=== PATIENT | female | born 1965 | race Caucasian/White ===

== ENCOUNTER → 2017-05-11 | Outpatient (CLI) | payer OTHER ==
--- NOTE | 2017-05-17 09:13 | RSPPFT ---
DATE OF PROCEDURE: 05/11/17 COMMENTS: Spirometry shows FVC of 2.1 at 76% of predicted, FEV1 of 1.8 at 75%, FEV1/FVC ratio is normal. Flow is normal at FEF 25, FEF 50 and FEF 75. There is no response after bronchodilator treatment. Lung volumes show residual volume is normal. TLC is normal. Diffusion capacity is normal. Flow volume loop indicates a normal pattern. Room air arterial blood gases show pH of 7.39, PCO2 of 42, PO2 of 94, BiCarb of 25 and O2 Saturation at 95%. IMPRESSION: 1. Normal spirometry. 2. No response after bronchodilator treatment. 3. Normal lung volumes. 4. Normal diffusion capacity. 5. Blood gases show normal oxygenation.
== END ==
LOC: HRSP 12:02
PROVIDERS: ATTEND Specialist
DX: R06.00 Dyspnea, unspecified (principal)
CPT/HCPCS: 36600; 82805; 94060; 94726; 94729

== ENCOUNTER → 2017-05-28 | Day surgery (SDC) | payer OTHER ==
[~2017-05-28] MED LIST: LACTATED RINGER'S 1000 ML INJ 1,000 ML ONE; PROPOFOL 200 MG/20 ML AMP IV ONE
--- NOTE | 2017-05-28 10:11 | GIPROC ---
[facility] [address] [facility], [address] EGD PROCEDURE REPORT EXAM DATE: 05/28/2017 PATIENT NAME: Erika Basilio MR #: [id number] BIRTHDATE: 1965 ATTENDING: Francisco Javier Lopez MD ORDER #: [id number] REFERENCE AND INSTRUCTION LIBRARIAN: Chelita Fernandez RN STATUS: outpatient INDICATIONS: The patient is a 52 yr old female here for an EGD due to history of esophageal reflux PROCEDURE PERFORMED: EGD w/ biopsy MEDICATIONS: None and Per Anesthesia. TOPICAL ANESTHETIC: CONSENT: The patient understands the risks and benefits of the procedure and understands that these risks include, but are not limited to: sedation, allergic reaction, infection, perforation and/or bleeding. Alternative means of evaluation and treatment include, among others: physical exam, x-rays, and/or surgical intervention. The patient elects to proceed with this endoscopic procedure. medical equipment was checked for proper function. Hand hygiene and appropriate measures for infection prevention was taken. After the risks, benefits and alternatives of the procedure were thoroughly explained, Informed consent was verified, confirmed and timeout was successfully executed by the treatment team. The patient was anesthetized with topical anesthesia and the EG-[id number] ([id number]) endoscope was introduced through the mouth and advanced to the second portion of the duodenum. Retroflexed views revealed no abnormalities The gastroscope was then slowly withdrawn and removed. ESOPHAGUS: There was LA Class A esophagitis noted. A biopsy was performed using cold forceps. Sample sent for histology. STOMACH: There was moderate and erosive gastritis in the gastric antrum. A biopsy was performed using cold forceps. Sample sent for histology. DUODENUM: The duodenal mucosa appeared normal in the bulb and second portion of the duodenum. ADVERSE EVENTS: There were no complications. IMPRESSIONS: 1. There was LA Class A esophagitis noted; biopsy was performed 2. There was gastritis in the gastric antrum; biopsy was performed 3. Normal duodenal mucosa in the bulb and second portion of the duodenum 4. Retroflexed views revealed no abnormalities RECOMMENDATIONS: 1. Await biopsy results. Biopsy results will not be ready for 7-10 days. If you don't hear from us in two weeks, call our office for biopsy results. 2. Anti-reflux regimen 3. Continue PPI 4. Avoid NSAIDS PATIENT CONDITION: stable DISPOSITION: Home REPEAT EXAM: Return 1 year EGD pending biopsy results Francisco Javier Lopez MD eSigned: Francisco Javier Lopez MD 05/28/2017 10:11 AM cc: Dania Sawyer [facility] Kassie Friedman M.D. PATIENT NAME: Erika Basilio MR#: [id number]
== END | disposition home or self-care (01) ==
LOC: ESDC 08:11
PROVIDERS: ATTEND Internal Medicine Gastroenterology
DX: K21.0 Gastro-esophageal reflux disease with esophagitis (principal); K29.70 Gastritis, unspecified, without bleeding
CPT/HCPCS: 00731; 43239; 88305; 88312; J3010; J7120

== ENCOUNTER 2017-06-22 12:08 | Observation (INO) | payer OTHER ==
[2017-06-22] MEDS ORDERED: AMBI5TAB PO (13:47)
[2017-06-22] MEDS ORDERED: CYMB60CA PO (13:47)
[2017-06-22] MEDS ORDERED: ROPI.25 PO (13:47)
[2017-06-22] MEDS ORDERED: VENTAER INH (13:47)
[2017-06-22] MEDS ORDERED: OXYB5TAB8 PO (13:47)
[2017-06-22] MEDS ORDERED: LOSA50TA PO (13:47)
[2017-06-22] MEDS ORDERED: MOBI15TA PO (13:47)
[2017-06-22] MEDS ORDERED: PROT40TA PO (13:47)
[2017-06-22] MEDS ORDERED: KETOROLAC TROMETHAMINE 30 MG/ML (IVP) VIAL IV PUSH ONE (15:45)
[2017-06-22] MEDS ORDERED: ACETAMINOPHEN 500 MG CPLT PO PRN (15:45)
[2017-06-22] MEDS ORDERED: ONDANSETRON HCL 4 MG/2 ML VIAL IV PUSH PRN (15:45)
[2017-06-22] MEDS ORDERED: NITROGLYCERIN 0.4 MG SL 25 TABS/BTL SL PRN (15:45)
[2017-06-22] MEDS ORDERED: SODIUM CHLORIDE 0.9% FLUSH 10 ML FLUSH IV FLUSH PRN (15:45)
--- NOTE | 2017-06-22 15:47 | HHI.HP ---
HPI Primary Care Physician Shane Friedman MD Chief Complaint Chest pain History of Present Illness 52-year-old female with history of asthma since emergency room for further evaluation chest pain. Onset 1:30 AM. Pain woke her from sleep. Location substernal. Characterized as pressure. Radiation to mid back. Moderate severity. Hurts to take a deep breath. Duration constant. Associated symptoms initially included nausea and diaphoresis. Denied vomiting or shortness of breath. No known precipitating or relieving factors. No recent illness or fever. No recent injury or known trauma. Denies similar pain in the past. Review of Systems General: No fatigue,weakness, fever, chills, or recent illness change in appetite HEENT: No SESAY, no vision changes, no nasal congestion or drainage, no dysphasia CV: Continues to have chest pain as stated above which is made worse with deep breathing or palpation. RESP: No SOB, cough, wheeze. History of asthma GI: No nausea or vomiting, bowel changes, diarrhea, constipation, pain, distention, melena, blood in the stool. No change in appetite, no unintentional weight gain or weight loss : No dysuria, urgency, frequency EXT: No lower leg edema, no paraesthesias MS: No discomfort or change in ROM NEURO: No difficulty with balance, LOC, motor/sensory deficits PSYCH: No anxiety, depression, suicidal ideation SKIN: No rashes, no concerning lesions Past Family Social History Allergies: Coded Allergies: No Known Allergies (Unverified , 06/22/17) Past Medical History Asthma, hypertension, morbidly obese, depression, GERD Reported Medications Reported Meds & Active Scripts Active Reported Ventolin Hfa 18 GM Inh (Albuterol Sulfate) 90 Mcg/Act Aer 1 Puff INH Q4H PRN Requip (Ropinirole HCl) 0.25 Mg Tab Unknown Dose PO HS Ambien (Zolpidem Tartrate) 5 Mg Tab 5 Mg PO HS PRN Ditropan (Oxybutynin Chloride) 5 Mg Tab 5 Mg PO Q12HR Cymbalta DR (Duloxetine HCl) 60 Mg Capdr 60 Mg PO DAILY Mobic (Meloxicam) 15 Mg Tab 15 Mg PO DAILY Protonix (Pantoprazole Sodium) 40 Mg Tab 40 Mg PO DAILY Losartan (Losartan Potassium) 50 Mg Tab 50 Mg PO DAILY Family History Noncontributory for early onset cardiovascular disease Social History Known hypertension. No known diabetes or hyperlipidemia. Lifelong nonsmoker. Denies alcohol or illegal drug use. . Works as an RN Rad. Past cardiac testing None Physical Exam Physical Exam GENERAL: Alert WN, WD, NAD, pleasant, morbidly obese female HEAD: NC, AT EYES: Sclera clear, conjunctiva without injection, pupils equal and round ENT: Mucous membranes pink and moist CV: RRR, without murmur, rub, gallop, no JVD, S1-S2 no S3-S4. RESP: Clear lungs throughout bilateral, no crackles, wheeze, rhonchi, symmetrical chest rise, nonlabored, able to speak in full sentences ABD: Soft, NT, ND, no masses, positive bowel tones EXT: Pulses +24, no dependent edema MS: Normal tone 4 extremities, no obvious deformities, full range of motion NEURO: CN II through CN XII grossly intact, motor strength 5/5, gait WNL PSYCH: A+O 3, pleasant affect, appropriate speech, mood, insight and judgment SKIN: Normal turgor, normal texture, no lesions, no rashes Laboratory Laboratory completed [facility]. CBC hemoglobin 11.3, hematocrit 36.2 platelets 375 otherwise unremarkable. CMP unremarkable D-dimer 0.71 BNP 41. Troponin 0.02 Imaging Chest x-ray and CT pulmonary angiogram completed [facility]. No evidence of PE suggesting cardiomegaly with mild failure. Chest x-ray no acute cardiopulmonary disease process Course EKG Normal sinus rhythm, no ST or T-segment changes Caprini VTE Risk Assessment Caprini VTE Risk Assessment: No/Low Risk (score <= 1) Caprini Risk Assessment Model Point Value = 1 Point Value = 2 Point Value = 3 Point Value = 5 Age 41-60 Minor surgery BMI > 25 kg/m2 Swollen legs Varicose veins or History of unexplained or recurrent spontaneous Oral contraceptives or hormone replacement Sepsis (< 1 month) Serious lung disease, including pneumonia (< 1 month) Abnormal pulmonary function Acute myocardial infarction Congestive heart failure (< 1 month) History of inflammatory bowel disease Medical patient at bed rest Age 61-74 Arthroscopic surgery Major open surgery (> 45 min) Laparoscopic surgery (> 45 min) Malignancy Confined to bed (> 72 hours) Immobilizing plaster cast Central venous access Age >= 75 History of VTE Family history of VTE Factor V Leiden Prothrombin [id number] Lupus anticoagulant Anticardiolipin antibodies Elevated serum homocysteine Heparin-induced thrombocytopenia Other congenital or acquired thrombophilia Stroke (< 1 month) Elective arthroplasty Hip, pelvis, or leg fracture Acute spinal cord injury (< 1 month) Prophylaxis Regimen Total Risk Factor Score Risk Level Prophylaxis Regimen 0-1 Low Early ambulation 2 Moderate Order ONE of the following: *Sequential Compression Device (SCD) *Heparin 5000 units SQ BID 3-4 Higher Order ONE of the following medications: *Heparin 5000 units SQ TID *Enoxaparin/Lovenox 40 mg SQ daily (WT < 150 kg, CrCl > 30 mL/min) *Enoxaparin/Lovenox 30 mg SQ daily (WT < 150 kg, CrCl > 10-29 mL/min) *Enoxaparin/Lovenox 30 mg SQ BID (WT < 150 kg, CrCl > 30 mL/min) AND/OR *Sequential Compression Device (SCD) 5 or more Highest Order ONE of the following medications: *Heparin 5000 units SQ TID (Preferred with Epidurals) *Enoxaparin/Lovenox 40 mg SQ daily (WT < 150 kg, CrCl > 30 mL/min) *Enoxaparin/Lovenox 30 mg SQ daily (WT < 150 kg, CrCl > 10-29 mL/min) *Enoxaparin/Lovenox 30 mg SQ BID (WT < 150 kg, CrCl > 30 mL/min) AND *Sequential Compression Device (SCD) Assessment and Plan Assessment and Plan Atypical chest pain -admitted to chest pain center. Has been seen and evaluated by Dr. Jose Wilkinson. Continue cardiac protocol including 3 sets of EKGs and cardiac enzymes. Monitor in telemetry overnight. Chest discomfort suggestive of Costochondral pain due to easily reproducible chest pain with palpation, movement, and taken a deep breath. Additional dose of Toradol 30mg IV x1 dose now. After being ruled out plan to complete chemical stress test in the a.m. If unremarkable, plan for discharge home to follow-up with PCP. Ruthann Woodard Jun 22, 2017 15:46
[2017-06-22 16:02] VITALS: BP 112/58; PULSE 91; RESP 20; TEMP 97.5
[2017-06-22 17:11] VITALS: PULSE 95
[2017-06-22 17:40] LABS: TROPONIN I LESS THAN 0.02 NG/ML (0.02-0.05)
[2017-06-22] MEDS ORDERED: ZOLPIDEM TARTRATE 5 MG TAB PO PRN (19:00)
[2017-06-22 20:13] VITALS: BP 130/58; PULSE 93; RESP 18; TEMP 98; O2SAT 98
[2017-06-22] MEDS: SODIUM CHLORIDE 0.9% FLUSH 10 ML FLUSH IV FLUSH SCH (20:25)
[2017-06-22] MEDS: OXYBUTYNIN CHLORIDE 5 MG TAB PO SCH (20:25)
[2017-06-22 22:54] LABS: TROPONIN I LESS THAN 0.02 NG/ML (0.02-0.05)
[2017-06-22 23:00] VITALS: PULSE 75
[2017-06-23] MEDS ORDERED: KETOROLAC TROMETHAMINE 30 MG/ML (IVP) VIAL IV PUSH ONE ×2 (00:15→06:00)
[2017-06-23 04:00] VITALS: BP 131/74; PULSE 78; RESP 18; TEMP 98.7; O2SAT 97
[2017-06-23] MEDS ORDERED: KETOROLAC TROMETHAMINE 30 MG/ML (IVP) VIAL IV PUSH SCH (08:00)
--- NOTE | 2017-06-23 08:02 | PD.CARD.PN ---
Subjective Subjective Remarks Musculoskeletal chest pain resolved, continues to have right scapula and mid back pain, relieved laying on right side. Objective Medications Current Medications Medications (Trade) Dose Ordered Sig/Louis Route Start Time Stop Time Status Last Admin (NS Flush) 2 ml UNSCH PRN IV FLUSH 06/22/17 15:45 (NS Flush) 2 ml BID IV FLUSH 06/22/17 21:00 06/22/17 20:25 (Tylenol) 500 mg Q4H PRN PO 06/22/17 15:45 06/22/17 20:25 (Zofran Inj) 4 mg Q6H PRN IV PUSH 06/22/17 15:45 (Nitrostat Sl) 0.4 mg Q5M PRN SL 06/22/17 15:45 (Aspirin) 325 mg DAILY PO 06/23/17 09:00 (Cymbalta Dr) 60 mg DAILY PO 06/23/17 09:00 (Cozaar) 50 mg DAILY PO 06/23/17 09:00 (Ditropan) 5 mg Q12HR PO 06/22/17 21:00 06/22/17 20:25 (Protonix) 40 mg DAILY PO 06/23/17 09:00 (Ambien) 5 mg HS PRN PO 06/22/17 19:00 06/23/17 00:13 (Toradol Inj) 30 mg Q8H IV PUSH 06/23/17 08:00 06/27/17 16:01 Vital Signs / I&O Vital Signs Date Time Temp Pulse Resp B/P (MAP) Pulse Ox O2 Delivery O2 Flow Rate FiO2 06/23/17 04:00 98.7 78 18 131/74 (93) 97 06/23/17 01:13 18 06/22/17 23:00 75 06/22/17 21:25 18 06/22/17 20:13 98.0 93 18 130/58 (82) 98 06/22/17 17:11 95 06/22/17 16:02 97.5 91 20 112/58 (76) Physical Exam GENERAL: Alert WN, WD, NAD, pleasant, morbidly obese female HEAD: NC, AT CV: RRR, without murmur, rub, gallop, no JVD, S1-S2 no S3-S4. Chest wall tender with palpation. RESP: Clear lungs throughout bilateral, no crackles, wheeze, rhonchi, symmetrical chest rise, nonlabored, able to speak in full sentences BACK: Right posterior scapula and midback pain easily reproduced with light palpation. EXT: Pulses +24, no dependent edema MS: Normal tone 4 extremities, no obvious deformities, full range of motion PSYCH: A+O 3, pleasant affect SKIN: Normal turgor, normal texture, no lesions, no rashes, even hair distribution, multiple tattoos Laboratory Laboratory Tests Test 06/22/17 17:05 06/22/17 22:00 Total Creatine Kinase 95 U/L 95 U/L Troponin I LESS THAN 0.02 NG/ML LESS THAN 0.02 NG/ML Assessment and Plan Assessment and Plan Atypical chest pain -admitted to chest pain center. Ruled out with 3 sets of EKGs and cardiac enzymes. Chest discomfort relieves with Toradol, however continues to have back pain. Reassurance provided and reinforced discomfort continues to suggestive of musculoskeletal pain. Flexeril 5mg PO x1 dose now. Continue with Lexiscan this am due to risk factors, not presenting symptoms. Patient verbalized understanding and agreeable to plan of care. Ruthann Woodard Jun 23, 2017 08:01
[2017-06-23 08:29] VITALS: BP 140/73; PULSE 85; RESP 18; TEMP 98.3; O2SAT 98
[2017-06-23] MEDS ORDERED: PILL SPLITTER OTHER PRN (08:30)
[2017-06-23] MEDS: OXYBUTYNIN CHLORIDE 5 MG TAB PO SCH (08:57)
[2017-06-23] MEDS: SODIUM CHLORIDE 0.9% FLUSH 10 ML FLUSH IV FLUSH SCH (09:00)
[2017-06-23] MEDS ORDERED: CYCLOBENZAPRINE HCL 10 MG TAB PO ONE (09:00)
[2017-06-23] MEDS ORDERED: DULoxetine HCl DR 60 MG CAP PO SCH (09:00)
[2017-06-23] MEDS ORDERED: PANTOPRAZOLE SOD 40 MG DELAYED RELEASE TAB PO SCH (09:00)
[2017-06-23] MEDS ORDERED: ASPIRIN 325 MG TAB PO SCH (09:00)
[2017-06-23] MEDS ORDERED: LOSARTAN 50 MG TAB PO SCH (09:00)
[2017-06-23] MEDS ORDERED: REGADENOSON INJ 0.4 MG/5 ML SYR ONE (09:50)
--- NOTE | 2017-06-23 12:01 | RADRPT ---
EXAM DATE/TIME: 06/23/2017 10:04 [facility] COMPARISON: No previous studies available for comparison. INDICATIONS : Chest pain. DOSE: 35 mCi Tc99m Myoview at stress. 11 mCi Tc99m Myoview at rest. 0.4 mg Lexiscan STRESS SYMPTOMS: Shortness of breath. EJECTION FRACTION: 55% MEDICAL HISTORY : Gastroesophageal reflux disease. Hypertension. SURGICAL HISTORY : None. ENCOUNTER: Initial ACUITY: 1 day PAIN SCALE: 4/10 LOCATION: Substernal chest TECHNIQUE: The patient underwent pharmacologic stress with infusion of prescribed dose. Continuous ECG tracing was monitored during stress. Gated SPECT imaging was performed after stress and conventional SPECT i maging was performed at rest. The examination was performed on a SPECT/CT scanner, both attenuation and non-corrected datasets were reviewed. FINDINGS: DISTRIBUTION: The maximum perfused segment at stress is in the septal wall. PERFUSION STUDY: The pattern of perfusion at stress is within normal limits. GATED STUDY: There is intact wall motion and thickening without hypokinetic or dyskinetic segments. CONCLUSION: Normal examination. RISK CATEGORY: Low risk Kathi Larson MD on June 23, 2017 at 11:56 Board Certified Radiologist. This report was verified electronically.
[2017-06-23 12:05] VITALS: BP 145/72; PULSE 86; RESP 18; TEMP 97.4; O2SAT 98
[2017-06-23] MEDS ORDERED: CYCL5TAB PO (12:46)
--- NOTE | 2017-06-23 12:47 | HHI.DCPOC ---
Discharge Care Plan Diagnosis: (1) Musculoskeletal back pain (2) Costochondral pain Goals to Promote Your Health * To prevent worsening of your condition and complications * To maintain your health at the optimal level Directions to Meet Your Goals Take your medications as prescribed Follow your dietary instruction Follow activity as directed Keep your appointments as scheduled Take your immunizations and boosters as scheduled If your symptoms worsen call your PCP, if no PCP go to Urgent Care Center or Emergency Room Smoking is Dangerous to Your Health. Avoid second hand smoke Call the 24-hour hour crisis hotline for domestic abuse at Ruthann Woodard Jun 23, 2017 12:47
--- NOTE | 2017-06-23 16:28 | EKG ---
Date Performed: 06/22/2017 Time Performed: 17:22:09 PTAGE: 52 years EKG: Sinus rhythm NORMAL ECG NO PREVIOUS TRACING DOCTOR: Benny Rodriguez Interpretating Date/Time 06/23/2017 16:26:47
--- NOTE | 2017-06-23 16:32 | TR ---
Date Performed: 06/23/2017 Time Performed: 10:32:53 DOCTOR: Benny Rodriguez DRUG LIST: CLINICAL HISTORY: ANGINA REASON FOR TEST: REASON FOR ENDING: OBSERVATION: CONCLUSION: Lexiscan stress test was performed under standard four minute protocol. Radionuclide was injected one minute prior to ending the test. No electrocardiographic abormalities were present to suggest ischemia. Nuclear imaging and interpretation are pending. COMMENTS:
== END 2017-06-23 14:40 | disposition home or self-care (01) ==
LOC: NEDDLT 12:08 → NEPFCDU 12:21 → UNDOADMOB 12:21 → UNDODISOB 06-23 14:40
PROVIDERS: ADMIT Internal Medicine Cardiovascular Disease; ATTEND Internal Medicine Cardiovascular Disease
DX: R07.89 Other chest pain (principal); R07.1 Chest pain on breathing; M54.9 Dorsalgia, unspecified; R11.0 Nausea; R61 Generalized hyperhidrosis; R06.02 Shortness of breath; I20.9 Angina pectoris, unspecified; I10 Essential (primary) hypertension; J45.909 Unspecified asthma, uncomplicated; K21.9 Gastro-esophageal reflux disease without esophagitis; F32.9 Major depressive disorder, single episode, unspecified; Z79.899 Other long term (current) drug therapy
CPT/HCPCS: 71045; 71275; 78452; 80048; 82550; 82552; 83735; 83880; 84484; 85025; 85379; 85610; 85730; 93005; 93017; 96374; 96375; 96376; 99285; A9502; G0378; J1885; J2270; J2785; Q9967

== ENCOUNTER 2017-08-29 05:03 | Inpatient (IN) | payer OTHER ==
[~2017-08-29] VITALS: Ht 157.5 cm; Wt 137.4 kg
[~2017-08-29 05:03] MED LIST changes: +AMBI5TAB PO; +CYMB60CA PO; -LACTATED RINGER'S 1000 ML INJ 1,000 ML ONE; +LOSA50TA PO; +MOBI15TA PO; +OXYB5TAB8 PO; -PROPOFOL 200 MG/20 ML AMP IV ONE; +PROT40TA PO; +ROPI.25 PO; +VENTAER INH
[2017-08-29] MEDS ORDERED: ceFAZolin 2 GM PREMIX 50 ML IV SCH (05:30)
[2017-08-29] MEDS ORDERED: LACTATED RINGER'S 1000 ML IV PRN (05:30)
[2017-08-29] MEDS ORDERED: SCOPOLAMINE 1.5 MG PATCH T-DERMAL SCH (05:30)
[2017-08-29] MEDS ORDERED: METOPROLOL TARTRATE 25 MG TAB PO PRN (05:30)
[2017-08-29] MEDS ORDERED: POVIDONE IODINE 5% (ANTISEPSIS KIT) 4 APPLICATIONS EACH NARE PRN (05:30)
[2017-08-29] MEDS ORDERED: SODIUM CHLORID 0.9% 500 ML IV PRN (05:30)
[2017-08-29] MEDS ORDERED: ACETAMINOPHEN 1000 MG/100 ML 100 ML IV SCH (05:30)
[2017-08-29] MEDS ORDERED: ONDANSETRON HCL 4 MG/2 ML VIAL IV PUSH SCH (05:30)
[2017-08-29] MEDS ORDERED: APREPITANT 40 MG CAP PO SCH (05:30)
[2017-08-29] MEDS ORDERED: CHLORHEXIDINE GLUCONATE 2 % 1 PACK (2 CLOTHS) TOPICAL PRN (05:30)
[2017-08-29] MEDS ORDERED: metroNIDAZOLE 500 MG INJ 100 ML IV SCH (05:30)
[2017-08-29] MEDS ORDERED: ceFAZolin INJ 1,000 MG VIAL ONE (07:18)
[2017-08-29] MEDS ORDERED: BUPIVACAINE/EPINEPHRINE 0.25% 50 ML VIAL ONE (07:19)
[2017-08-29] MEDS ORDERED: FAMOTIDINE 20 MG/2 ML VIAL ONE (07:37)
[2017-08-29] MEDS ORDERED: PROPOFOL 200 MG/20 ML AMP IV ONE (12:00)
[2017-08-29] MEDS ORDERED: LIDOCAINE HCL 1% PF 5 ML SYRINGE OTHER ONE (12:00)
[2017-08-29] MEDS ORDERED: ePHEDrine/NS 25 MG/5 ML SYRINGE IV ONE (12:00)
[2017-08-29] MEDS ORDERED: ROCURONIUM INJ 50 MG/5 ML SYRINGE IV PUSH ONE (12:00)
[2017-08-29] MEDS ORDERED: ONDANSETRON HCL 4 MG/2 ML VIAL IV ONE (12:00)
[2017-08-29] MEDS ORDERED: DEXAMETHASONE SOD PHOS 4 MG/ML VIAL IV ONE (12:00)
[2017-08-29] MEDS ORDERED: PHENYLEPH/NS 1000 MCG/10 ML SYR IV ONE (12:00)
[2017-08-29] MEDS ORDERED: SUCCINYLCHOLINE CHLORIDE 200 MG/10 ML VIAL IV ONE (12:00)
[2017-08-29] MEDS ORDERED: SUGAMMADEX SODIUM 200 MG/2 ML VIAL IV PUSH ONE ×2 (12:09→12:31)
[2017-08-29] MEDS ORDERED: ONDANSETRON HCL 4 MG/2 ML VIAL IV PUSH PRN (12:15)
[2017-08-29] MEDS ORDERED: MORPHINE SULFATE 30 MG/30 ML PCA IV SCH (12:15)
[2017-08-29] MEDS ORDERED: diphenhydrAMINE HCL 50 MG/ML VIAL IV PUSH PRN (12:15)
[2017-08-29] MEDS ORDERED: Post-op Orders (for Pharmacy) OTHER ONE (12:15)
[2017-08-29] MEDS ORDERED: diphenhydrAMINE HCL ELIXIR 12.5 MG/5 ML CUP PO PRN (12:15)
[2017-08-29] MEDS ORDERED: SODIUM CHLORIDE 0.9% FLUSH 10 ML FLUSH IV FLUSH PRN (12:15)
[2017-08-29] MEDS ORDERED: ACETAMINOPHEN 325MG/HYDROcodone 7.5MG/15ML UDC PO PRN ×2 (12:15)
[2017-08-29] MEDS ORDERED: NALOXONE HCL 0.4 MG/ML AMP IV PUSH PRN (12:15)
[2017-08-29] MEDS ORDERED: DO NOT ADM ANY ANTICOAGULANT DRUGS PRN (12:42)
[2017-08-29] MEDS ORDERED: MIDAZOLAM HCL 2 MG/2 ML VIAL ONE (12:53)
[2017-08-29] MEDS: D5-1/2 NS + KCL 20 MEQ INJ 1,000 ML IV SCH ×2 (13:00→22:03)
[2017-08-29] MEDS ORDERED: *morphine SULFATE 4 MG/ML PERIprocedure ONLY ONE ×2 (13:09→13:28)
[2017-08-29] MEDS: ACETAMINOPHEN 1000 MG/100 ML 100 ML IV SCH ×2 (13:50→20:54)
[2017-08-29] MEDS: METOCLOPRAMIDE HCL 10 MG/2 ML VIAL IV PUSH SCH ×2 (13:50→20:55)
[2017-08-29] MEDS: PCA - TOTAL MG MORPHINE DELIVERED PER SHIFT SCH ×2 (14:00→22:00)
[2017-08-29 16:00] VITALS: BP 176/84; PULSE 98; RESP 17; TEMP 97.9; O2SAT 98
[2017-08-29] MEDS: metroNIDAZOLE 500 MG INJ 100 ML IV SCH (16:14)
[2017-08-29] MEDS: ENOXAPARIN SODIUM 40 MG/0.4 ML SYRINGE SQ SCH (17:02)
[2017-08-29 20:00] VITALS: BP 183/88; PULSE 95; RESP 20; TEMP 98.6; O2SAT 99
[2017-08-29] MEDS: SODIUM CHLORIDE 0.9% FLUSH 10 ML FLUSH IV FLUSH SCH (20:55)
[2017-08-30] VITALS: BP 173/81; PULSE 91; RESP 20; TEMP 98.2; O2SAT 98
[2017-08-30] MEDS: metroNIDAZOLE 500 MG INJ 100 ML IV SCH ×2 (00:48→08:33)
[2017-08-30] MEDS: ACETAMINOPHEN 1000 MG/100 ML 100 ML IV SCH ×2 (02:04→08:32)
[2017-08-30] MEDS: METOCLOPRAMIDE HCL 10 MG/2 ML VIAL IV PUSH SCH ×2 (02:05→08:34)
[2017-08-30 04:00] VITALS: BP 139/79; PULSE 88; RESP 20; TEMP 98.4; O2SAT 99
[2017-08-30] MEDS: PCA - TOTAL MG MORPHINE DELIVERED PER SHIFT SCH ×2 (06:00→13:00)
[2017-08-30 07:50] LABS: AUTOMATED NEUTROPHIL # 17.1 TH/MM3 (1.8-7.7); BASOPHIL % 0.1 % (0.0-2.0); HEMATOCRIT 32.9 % (35.0-46.0); HEMOGLOBIN 10.3 GM/DL (11.6-15.3); LYMPH % 9.3 % (9.0-44.0); LYMPHOCYTE # 1.9 TH/MM3 (1.0-4.8); MEAN CELL VOLUME 80.9 FL (80.0-100.0); MEAN CORPUSCULAR HEMOGLOBIN 25.3 PG (27.0-34.0); MEAN CORPUSCULAR HGB CONC 31.2 % (32.0-36.0); MEAN PLATELET VOLUME 8.4 FL (7.0-11.0); MONO % 7.6 % (0.0-8.0); MONOCYTE # 1.6 TH/MM3 (0-0.9); PLATELET COUNT 353 TH/MM3 (150-450); RED BLOOD COUNT 4.07 MIL/MM3 (4.00-5.30); WHITE BLOOD COUNT 20.6 TH/MM3 (4.0-11.0)
[2017-08-30 08:10] LABS: BICARBONATE 27.1 MEQ/L (21.0-32.0); CALCIUM 8.5 MG/DL (8.5-10.1); CREATININE 0.83 MG/DL (0.50-1.00); MAGNESIUM 1.8 MG/DL (1.5-2.5)
[2017-08-30] MEDS: D5-1/2 NS + KCL 20 MEQ INJ 1,000 ML IV SCH ×3 (08:31→18:23)
[2017-08-30] MEDS: PANTOPRAZOLE SOD 40 MG DELAYED RELEASE TAB PO SCH (08:34)
[2017-08-30] MEDS: SODIUM CHLORIDE 0.9% FLUSH 10 ML FLUSH IV FLUSH SCH ×2 (08:38→21:00)
[2017-08-30] MEDS ORDERED: ALBUTEROL SULFATE 90 MCG/ACT HFA 8 GM INHALER INH PRN (08:45)
[2017-08-30] MEDS: DULoxetine HCl DR 60 MG CAP PO SCH (09:22)
[2017-08-30] MEDS: LOSARTAN 50 MG TAB PO SCH (09:22)
--- NOTE | 2017-08-30 09:24 | RADRPT ---
EXAM DATE/TIME: 08/30/2017 08:49 [facility] COMPARISON: CHEST SINGLE AP, June 22, 2017, 10:16. INDICATIONS : Short of breath. MEDICAL HISTORY : Hypertension. Asthma SURGICAL HISTORY : Cholecystectomy. Umbilical hernia repair. Breast reduction. ENCOUNTER: Subsequent ACUITY: 1 week PAIN SCORE: 0/10 LOCATION: Bilateral chest FINDINGS: A single view of the chest demonstrates the lungs to be symmetrically aerated without evidence of mas s, infiltrate or effusion. The cardiomediastinal contours are unremarkable. Osseous structures are intact. CONCLUSION: No acute disease. Danyel Conroy MD on August 30, 2017 at 9:20 Board Certified Radiologist. This report was verified electronically.
--- NOTE | 2017-08-30 09:29 | MP ---
cc: Edmund Forde MD DATE OF OPERATION: 08/29/2017 PREOPERATIVE DIAGNOSES: Morbid obesity with a body mass index of 55, complicated by obstructive sleep apnea and essential hypertension. POSTOPERATIVE DIAGNOSES: Morbid obesity with a body mass index of 55, complicated by obstructive sleep apnea and essential hypertension. PROCEDURE PERFORMED: Laparoscopic duodenal switch gastrectomy over a 40-English bougie, 120 cm common channel, 150 cm alimentary limb. SURGEON: Edmund Forde MD MANAGER REIMBURSEMENT: MD Dr. Calvin Courtney's assistance was necessary for the procedure due to the complexity of the procedure. Dr. Simpson assisted with manipulation and exposure during the procedure. The restaurant assistant provided by [employer] was utilized for camera operation during the procedure. Dr. Simpson was present for the entire procedure. ANESTHESIA: General endotracheal anesthesia. ESTIMATED BLOOD LOSS: Less than 10 mL. FINDINGS: Fatty liver, omentum adhesed to hernia mesh. SPECIMENS: None. COMPLICATIONS: None. DESCRIPTION OF PROCEDURE: The patient was brought to the operating room and placed on the operating table in a supine position. A bilateral sequential inflation device was placed on the lower extremities. General anesthesia was instituted. A Ewing catheter was placed. Antibiotics were initiated. The abdomen was prepped and draped sterilely. A point in the periumbilical region was anesthetized with 0.25% Marcaine with epinephrine. A skin incision was made. A 5 mm Optiview port was placed under direct vision and pneumoperitoneum created. Under direct vision two 12 mm left upper quadrant and a 5 mm left lower quadrant port was placed. Two 12 mm right upper quadrant ports and a 5 mm epigastric port were placed. Prior to placement of all ports the skin and peritoneum were anesthetized with 0.25% Marcaine with epinephrine. The patient was placed in reverse Trendelenburg position. A Lissa-Flex retractor was placed and the left lobe of the liver was retracted. The falciform ligament was taken out of the field using a 2-0 nylon suture. Attention was focused on the duodenum. The pylorus was identified. A point 3 cm distal along the duodenum was identified. The peritoneum both medially and laterally along the duodenal bulb was dissected minimally using the Harmonic scalpel. The posterior duodenal space was further dissected using a Gold Finger followed by the laparoscopic band passer. The duodenum was then stapled 3 cm distal to the pylorus using the Kevil Flex power stapler blue load. Bleeding points were controlled using the Harmonic. Attention was then focused on the stomach. The patient was placed with her left side up. The vasculature along the greater curvature of the stomach was using the Harmonic scalpel starting a distance of approximately 10 cm proximal to the pylorus. This was carried towards the angle of His. The angle of His was taken down sharply. The posterior ligamentous attachment was sharply . A 36-English ViSiGi bougie was placed at the start of the case. Division of the stomach was then started approximately 10 cm proximal to the pylorus. This was performed using an Kevil Flex stapler. This was carried towards the angle of His to excise approximately 60% of the stomach. The bougie was used as a guide and the stapler at no point was hugging the bougie. The first firing was with a green load followed by three gold loads. All staple loads were reinforced with Seamguard. The gastrocolic ligament was then sutured to the posterior leaflet of the Seamguard. Attention was then focused on the lower abdomen. The patient was placed in Trendelenburg position. The ileocecal valve was identified. The bowel was measured proximally from the ileocecal valve to a distance of 120 cm. This was to be the common channel. This was marked with hemoclips. The regimen was carried further from this edmond another 150 cm proximally. The small bowel was divided in this region using an Kevil Flex stapler white load. The distal segment was marked. It was then brought up to the duodenum and a duodenoileostomy was created using a single layer handsewn anastomosis. The biliopancreatic limb was then brought down to the clips that were marked initially at 120 cm and a ileoileostomy was created using an Kevil Flex stapler white load. Two firings were taken, one proximally and one distally to create the anastomosis. The defect was then closed in a single layer of running 2-0 Vicryl. The defect at the ileostomy in the mesentery was then closed with 2-0 silk suture in a running manner. Attention was then focused back at the duodenoileostomy. The bowel was clamped distal to the anastomosis. Methylene blue diluted with saline was instilled through the ViSiGi. The stomach was distended as well as the proximal bowel with no evidence of extravasation. A 10 round DAWSON was placed posterior to the gastrojejunostomy and pulled out through the 5 mm port site in the left upper quadrant. Evicel was then placed over the duodenoileostomy and ileoileostomy. The Lissa-Flex retractor was then removed. The CO2 was released. All ports were removed. All skin incisions were closed with 4-0 Monocryl. The patient was awakened and taken to the recovery room stable. ADDENDUM: At the beginning of the operation, after the ports were placed, please add that adhesions of the omentum to the abdominal wall and hernia mesh were taken down using the Harmonic scalpel. MD PEDRO Ace/MITUL , 06:11 PM , 06:45 PM
--- NOTE | 2017-08-30 12:08 | HHI.PR ---
Subjective Subjective Notes Doing well DAWSON output serosanguineous Some irritation with swallowing Objective Vitals/I&O Vital Signs Date Time Temp Pulse Resp B/P (MAP) Pulse Ox O2 Delivery O2 Flow Rate FiO2 08/30/17 06:00 18 08/30/17 04:00 98.4 88 139/79 (99) 99 08/29/17 13:45 Nasal Cannula 3 Labs Laboratory Tests Test 08/30/17 07:03 08/30/17 09:58 White Blood Count 20.6 Red Blood Count 4.07 Hemoglobin 10.3 Hematocrit 32.9 Mean Corpuscular Volume 80.9 Mean Corpuscular Hemoglobin 25.3 Mean Corpuscular Hemoglobin Concent 31.2 Red Cell Distribution Width 18.0 Platelet Count 353 Mean Platelet Volume 8.4 Neutrophils (%) (Auto) 83.0 Lymphocytes (%) (Auto) 9.3 Monocytes (%) (Auto) 7.6 Eosinophils (%) (Auto) 0.0 Basophils (%) (Auto) 0.1 Neutrophils # (Auto) 17.1 Lymphocytes # (Auto) 1.9 Monocytes # (Auto) 1.6 Eosinophils # (Auto) 0.0 Basophils # (Auto) 0.0 CBC Comment DIFF FINAL Differential Comment Blood Urea Nitrogen 12 Creatinine 0.83 Random Glucose 141 Calcium Level 8.5 Magnesium Level 1.8 Sodium Level 139 Potassium Level 4.6 Chloride Level 107 Carbon Dioxide Level 27.1 Anion Gap 5 Estimat Glomerular Filtration Rate 73 Radiology Last Impressions Chest X-Ray 08/30/17 0000 Signed Impressions: Service Date/Time: August 08:49 - CONCLUSION: No acute disease. Danyel Conroy MD Cardiovascular: Regular Lungs: Clear Abdomen: Post-op tenderness Extremities: Perfused Wound Wound : Wound Location: Abdomen Appearance: Clean & Dry A/P Assessment and Plan 52yo F POD# laparoscopic DS -Restart home meds for BP control -WBC 20, CXR negative, will get CBC in AM -Transition to phase 1 diet -D/C logan and LABORATORY ENGINEER, transition to oral pain control -Ambulate halls QID Discharge Planning D/C home either tomorrow evening or Sunday Mehreen Roger Aug 30, 2017 12:08
[2017-08-30] MEDS ORDERED: METOCLOPRAMIDE HCL 10 MG/2 ML VIAL IV PUSH PRN (12:15)
[2017-08-30] MEDS: SUCRALFATE 1 GM/10 ML CUP PO SCH ×3 (12:47→21:34)
[2017-08-30] MEDS: ENOXAPARIN SODIUM 40 MG/0.4 ML SYRINGE SQ SCH (17:05)
[2017-08-30 20:00] VITALS: BP 170/88; PULSE 101; RESP 20; TEMP 99.3; O2SAT 96
[2017-08-31] VITALS: BP 176/97; PULSE 104; RESP 20; TEMP 97.9; O2SAT 95
[2017-08-31] MEDS: MORPHINE SULFATE 2 MG/ML SYRINGE IV PRN ×4 (00:29→14:00)
[2017-08-31] MEDS: D5-1/2 NS + KCL 20 MEQ INJ 1,000 ML IV SCH ×3 (02:41→17:03)
[2017-08-31 04:00] VITALS: BP 189/95; PULSE 100; RESP 20; TEMP 97.9; O2SAT 98
[2017-08-31 07:34] VITALS: BP 177/96; PULSE 100; RESP 20; TEMP 98; O2SAT 98
[2017-08-31 07:34] LABS: HEMATOCRIT 34.1 % (35.0-46.0); HEMOGLOBIN 10.8 GM/DL (11.6-15.3); MEAN CELL VOLUME 80.1 FL (80.0-100.0); MEAN CORPUSCULAR HEMOGLOBIN 25.4 PG (27.0-34.0); MEAN CORPUSCULAR HGB CONC 31.7 % (32.0-36.0); MEAN PLATELET VOLUME 8.4 FL (7.0-11.0); PLATELET COUNT 379 TH/MM3 (150-450); RED BLOOD COUNT 4.25 MIL/MM3 (4.00-5.30); RED CELL DISTRIBUTION WIDTH 17.6 % (11.6-17.2); WHITE BLOOD COUNT 15.7 TH/MM3 (4.0-11.0)
[2017-08-31] MEDS ORDERED: ENALAPRILAT 1.25 MG/ML VIAL IV PUSH PRN (09:00)
[2017-08-31] MEDS: PANTOPRAZOLE SOD 40 MG DELAYED RELEASE TAB PO SCH (09:42)
[2017-08-31] MEDS: LOSARTAN 50 MG TAB PO SCH (09:42)
[2017-08-31] MEDS: DULoxetine HCl DR 60 MG CAP PO SCH (09:42)
[2017-08-31] MEDS: SUCRALFATE 1 GM/10 ML CUP PO SCH ×4 (09:42→22:20)
[2017-08-31] MEDS: SODIUM CHLORIDE 0.9% FLUSH 10 ML FLUSH IV FLUSH SCH ×2 (09:55→21:00)
[2017-08-31 12:04] VITALS: BP 172/94; PULSE 98; RESP 20; TEMP 98.2; O2SAT 97
--- NOTE | 2017-08-31 12:04 | HHI.PR ---
Subjective Subjective Notes C/O of gas and cramping as well as reflux, going slow with fluids Hypertensive overnight despite resuming home meds DAWSON output minimal WBC trending down Objective Vitals/I&O Vital Signs Date Time Temp Pulse Resp B/P (MAP) Pulse Ox O2 Delivery O2 Flow Rate FiO2 08/31/17 07:34 98.0 100 20 177/96 (123) 98 08/30/17 21:25 21 08/29/17 13:45 Nasal Cannula 3 Labs Laboratory Tests Test 08/31/17 06:22 White Blood Count 15.7 Red Blood Count 4.25 Hemoglobin 10.8 Hematocrit 34.1 Mean Corpuscular Volume 80.1 Mean Corpuscular Hemoglobin 25.4 Mean Corpuscular Hemoglobin Concent 31.7 Red Cell Distribution Width 17.6 Platelet Count 379 Mean Platelet Volume 8.4 Radiology Last Impressions Chest X-Ray 08/30/17 0000 Signed Impressions: Service Date/Time: August 08:49 - CONCLUSION: No acute disease. Danyel Conroy MD Cardiovascular: Regular Lungs: Clear Abdomen: Post-op tenderness Extremities: Perfused Wound Wound : Wound Location: Abdomen Appearance: Clean & Dry A/P Assessment and Plan 52yo F POD#2 laparoscopic DS -Clonidine 0.1mg x 1 and PRN vasotec for BP control. Consult medicine for BP control -Add Levsin for epigastric discomfort, continue with Carafate -Continue with frequent ambulation Mehreen Roger Aug 31, 2017 12:04
[2017-08-31] MEDS ORDERED: cloNIDine HCL 0.1 MG TAB PO ONE (12:15)
[2017-08-31 13:06] LABS: AMYLASE BODY FLUID 171 U/L; AMYLASE BODY FLUID TYPE PERITONEAL
[2017-08-31] MEDS: HYOSCYAMINE SOLN 0.125 MG/ML 15 ML BTL PO SCH ×3 (13:18→22:18)
[2017-08-31] MEDS ORDERED: cloNIDine HCL 0.1 MG TAB PO PRN (15:15)
--- NOTE | 2017-08-31 15:26 | PD.CONS ---
HPI Service [facility] Hospitalists Consult Requested By Dr. Edmund Chavez Reason for Consult Medical management, BP control Primary Care Physician Shane Friedman MD Diagnoses: History of Present Illness Mrs. Basilio is a pleasant 52 y/o female with HTN, VIVIANA and has not been using CPAP, and morbid obesity. She was admitted to [facility] on 08/29/17 for bariatric surgery. Pt underwent laparoscopic duodenal switch gastrectomy on with Dr. Chavez. Pts blood pressure post-operatively has been elevated with systolic BP in the 160-180s. Pt reports that she has been in significant pain post-operatively. Normally she states that she takes Losartan 50mg po daily and that her systolic BP is normally in the 130's at home. In review of outpt records she has recorded that she is on Losartan but at a dose of 100mg po daily but pt states that she has been on 50mg daily for some time. She is not taking any other BP meds. Pt is currently on a clear liquid diet and has been swallowing some medications but has not been drinking a lot. She complains of reflux symptoms today. She denies any nausea/vomiting, diarrhea, chest pain, SOB or palpitations. Review of Systems Constitutional: DENIES: Fever, Chills Eyes: DENIES: Vision loss Ears, nose, mouth, throat: DENIES: Hearing loss Respiratory: DENIES: Cough, Shortness of breath Cardiovascular: DENIES: Chest pain, Palpitations Gastrointestinal: COMPLAINS OF: Abdominal pain, GERD, Reflux, DENIES: Nausea, Vomiting Genitourinary: DENIES: Hematuria, Dysuria Musculoskeletal: DENIES: Back pain Integumentary: DENIES: Rash Neurologic: DENIES: Headache Psychiatric: DENIES: Confusion Past Family Social History Past Medical History Morbid obesity VIVIANA, not on a CPAP HTN Asthma Depression GERD Urinary incontinence Past Surgical History Hernia repair Bilateral breast reduction Cholecystectomy Reported Medications Ventolin Hfa 90 Mcg/Act Aer 1 Puff INH Q4H PRN Requip 0.25 Mg Tab Unknown Dose PO HS Ambien 5 Mg PO HS PRN Ditropan 5 Mg PO Q12HR Cymbalta DR 60 Mg PO DAILY Mobic 15 Mg PO DAILY Protonix 40 Mg PO DAILY Losartan 50 Mg PO DAILY Allergies: Coded Allergies: No Known Allergies (Unverified , 08/29/17) Family History Noncontributory Social History Denies any alcohol, tobacco or illicit drug use Pt is an RN and works nights here at [employer] Physical Exam Vital Signs Vital Signs Date Time Temp Pulse Resp B/P (MAP) Pulse Ox O2 Delivery O2 Flow Rate FiO2 08/31/17 12:04 98.2 98 20 172/94 (120) 97 08/31/17 07:34 98.0 100 20 177/96 (123) 98 08/31/17 05:50 20 08/31/17 04:00 97.9 100 20 189/95 (126) 98 08/31/17 00:00 97.9 104 20 176/97 (123) 95 08/30/17 21:25 21 08/30/17 20:00 99.3 101 20 170/88 (115) 96 08/30/17 19:40 20 Physical Exam GENERAL: This is a well-nourished, well-developed patient, in no apparent distress. SKIN: No rashes, ecchymoses or lesions. Cool and dry. HEENT: Atraumatic. Normocephalic. No temporal or scalp tenderness. No scleral icterus. Airway patent. NECK: Trachea midline, supple, nontender. CARDIO: Regular. RESP: CTA bilaterally. No wheezes, rales, or rhonchi. ABD: +BS, soft, non-distended, DAWSON drain in place in left abdomen, incisions are c/d/i. EXT: Extremities without clubbing, cyanosis, or edema. NEURO: Awake and alert. Motor and sensory grossly within normal limits. Normal speech. Laboratory Laboratory Tests Test 08/31/17 06:22 White Blood Count 15.7 Red Blood Count 4.25 Hemoglobin 10.8 Hematocrit 34.1 Mean Corpuscular Volume 80.1 Mean Corpuscular Hemoglobin 25.4 Mean Corpuscular Hemoglobin Concent 31.7 Red Cell Distribution Width 17.6 Platelet Count 379 Mean Platelet Volume 8.4 Result Diagram: 08/31/17 0622 08/30/17 0703 Imaging Last Impressions Chest X-Ray 08/30/17 0000 Signed Impressions: Service Date/Time: August 08:49 - CONCLUSION: No acute disease. Danyel Conroy MD Assessment and Plan Problem List: (1) Morbid obesity ICD Codes: E66.01 - Morbid (severe) obesity due to excess calories Status: Chronic Plan: Morbid obesity - Pt s/p laparoscopic duodenal switch gastrectomy on with Dr. Chavez - Post-op pain control per GS - Diet recommendations per GE - Cont. IVF for now - Supportive care - Encourage ambulation HTN, chronic - Pts BP has been elevated post-operatively - Most likely this is related to post-op pain - There is a question about the dose of her Losartan, 50mg vs. 100mg. Her family will obtain the prescription bottle to confirm the dosage. - Clonidine PRN - Vasotec PRN - Monitor closely, hopefully has pain is better controlled her BP will improve VIVIANA, chronic - Pt does not use CPAP at home GERD, chronic - PPI (2) VIVIANA (obstructive sleep apnea) ICD Codes: G47.33 - Obstructive sleep apnea (adult) (pediatric) Status: Chronic (3) Hypertension, benign ICD Codes: I10 - Essential (primary) hypertension Status: Chronic (4) GERD (gastroesophageal reflux disease) ICD Codes: K21.9 - Gastro-esophageal reflux disease without esophagitis Status: Chronic Donita Chang Aug 31, 2017 15:26
[2017-08-31 16:00] VITALS: BP 139/83; PULSE 88; RESP 18; TEMP 98.5; O2SAT 97
[2017-08-31] MEDS: ENOXAPARIN SODIUM 40 MG/0.4 ML SYRINGE SQ SCH (17:04)
[2017-08-31 20:00] VITALS: BP 162/57; PULSE 106; RESP 16; TEMP 98; O2SAT 98
[2017-09-01] VITALS: BP 116/55; PULSE 98; RESP 16; TEMP 97.8; O2SAT 95
[2017-09-01] MEDS: HYOSCYAMINE SOLN 0.125 MG/ML 15 ML BTL PO SCH ×4 (01:20→12:05)
[2017-09-01] MEDS: D5-1/2 NS + KCL 20 MEQ INJ 1,000 ML IV SCH ×3 (01:22→12:03)
[2017-09-01] MEDS: SUCRALFATE 1 GM/10 ML CUP PO SCH ×2 (05:55→12:05)
[2017-09-01 08:00] VITALS: BP 129/62; PULSE 88; RESP 16; TEMP 97.4; O2SAT 97
[2017-09-01] MEDS: SODIUM CHLORIDE 0.9% FLUSH 10 ML FLUSH IV FLUSH SCH (08:32)
[2017-09-01] MEDS: LOSARTAN 50 MG TAB PO SCH (08:32)
[2017-09-01] MEDS: PANTOPRAZOLE SOD 40 MG DELAYED RELEASE TAB PO SCH (08:32)
[2017-09-01] MEDS: DULoxetine HCl DR 60 MG CAP PO SCH (08:32)
--- NOTE | 2017-09-01 08:58 | HHI.PR ---
Subjective Remarks Pt feeling better today Less abdominal discomfort Less reflux symptoms BP is better controlled Pt brought in her prescription bottle from home and is taking Losartan 50mg po daily Objective Vitals Vital Signs Date Time Temp Pulse Resp B/P (MAP) Pulse Ox O2 Delivery O2 Flow Rate FiO2 09/01/17 08:00 97.4 88 16 129/62 (84) 97 09/01/17 00:00 97.8 98 16 116/55 (75) 95 08/31/17 20:00 98.0 106 16 162/57 (92) 98 08/31/17 16:00 98.5 88 18 139/83 (101) 97 08/31/17 12:04 98.2 98 20 172/94 (120) 97 Result Diagram: 08/31/17 0622 08/30/17 0703 Other Results Laboratory Tests Test 08/30/17 09:58 08/31/17 06:22 Body Fluid Amylase Source PERITONEAL Body Fluid Amylase 171 U/L White Blood Count 15.7 TH/MM3 Red Blood Count 4.25 MIL/MM3 Hemoglobin 10.8 GM/DL Hematocrit 34.1 % Mean Corpuscular Volume 80.1 FL Mean Corpuscular Hemoglobin 25.4 PG Mean Corpuscular Hemoglobin Concent 31.7 % Red Cell Distribution Width 17.6 % Platelet Count 379 TH/MM3 Mean Platelet Volume 8.4 FL Imaging Last Impressions Chest X-Ray 08/30/17 0000 Signed Impressions: Service Date/Time: August 08:49 - CONCLUSION: No acute disease. Danyel Conroy MD Objective Remarks General: NAD, AAOx3 Chest: CTA Cardiac: Regular Abd: +BS, soft obese, tenderness at the surgical sites Ext: No edema A/P Problem List: (1) Morbid obesity ICD Codes: E66.01 - Morbid (severe) obesity due to excess calories Status: Chronic Plan: Morbid obesity - Pt s/p laparoscopic duodenal switch gastrectomy on with Dr. Chavez - Post-op pain control per GS - Diet recommendations per GE - Cont. IVF for now - Supportive care - Encourage ambulation HTN, chronic - Pts BP has been elevated post-operatively - Most likely this is related to post-op pain, her BP is improved with improvement in her pain. - Cont. pts home dose of Losartan 50mg po daily - Clonidine PRN - Vasotec PRN VIVIANA, chronic - Pt does not use CPAP at home GERD, chronic - PPI (2) VIVIANA (obstructive sleep apnea) ICD Codes: G47.33 - Obstructive sleep apnea (adult) (pediatric) Status: Chronic (3) Hypertension, benign ICD Codes: I10 - Essential (primary) hypertension Status: Chronic (4) GERD (gastroesophageal reflux disease) ICD Codes: K21.9 - Gastro-esophageal reflux disease without esophagitis Status: Chronic Assessment and Plan Patient examined. Assessment and plan formulated with Donita Chang PA-C. I agree with the above. bp stable eager for d/c going home per gen surg. Donita Chang Sep 01, 2017 08:58 Saurabh Botello MD Sep 01, 2017 11:47
[2017-09-01] MEDS ORDERED: CARA1TAB6 PO (11:30)
--- NOTE | 2017-09-01 11:33 | HHI.PR ---
Subjective Subjective Notes pt comfortable states feels better pos flatus no N/V Objective Vitals/I&O Vital Signs Date Time Temp Pulse Resp B/P (MAP) Pulse Ox O2 Delivery O2 Flow Rate FiO2 09/01/17 08:00 97.4 88 16 129/62 (84) 97 08/30/17 21:25 21 08/29/17 13:45 Nasal Cannula 3 Radiology Last Impressions Chest X-Ray 08/30/17 0000 Signed Impressions: Service Date/Time: August 08:49 - CONCLUSION: No acute disease. Danyel Conroy MD Cardiovascular: Regular Lungs: Clear Abdomen: Post-op tenderness Extremities: Perfused Narrative Exam ya serosang Wound Wound : Wound Location: Abdomen Appearance: Clean & Dry A/P Assessment and Plan s/p Lap DS pod #3 doing well d/p home today f/u office next week Edmund Forde MD Sep 01, 2017 11:33
[2017-09-01 12:00] VITALS: BP 123/71; PULSE 92; RESP 17; TEMP 97.2; O2SAT 96
== END 2017-09-01 13:20 | disposition home or self-care (01) | DRG 621 ==
LOC: HSDI 05:03 → N07A 14:09
PROVIDERS: ADMIT Surgery; ATTEND Surgery
PROC: 0DB64ZZ Excision of Stomach, Percutaneous Endoscopic Approach (ICD-10-PCS; 2017-08-29)
PROC: 0D194ZB Bypass Duodenum to Ileum, Percutaneous Endoscopic Approach (ICD-10-PCS; principal; 2017-08-29 07:49)
DX: E66.01 Morbid (severe) obesity due to excess calories (principal); E11.21 Type 2 diabetes mellitus with diabetic nephropathy; E11.49 Type 2 diabetes mellitus with other diabetic neurological complication; K76.0 Fatty (change of) liver, not elsewhere classified; G47.33 Obstructive sleep apnea (adult) (pediatric); J45.909 Unspecified asthma, uncomplicated; K21.9 Gastro-esophageal reflux disease without esophagitis; R32 Unspecified urinary incontinence; Z68.43 Body mass index [BMI] 50.0-59.9, adult; F43.21 Adjustment disorder with depressed mood; F41.9 Anxiety disorder, unspecified; I12.9 Hypertensive chronic kidney disease with stage 1 through stage 4 chronic kidney disease, or unspecified chronic kidney disease; E11.22 Type 2 diabetes mellitus with diabetic chronic kidney disease; N18.1 Chronic kidney disease, stage 1; E55.9 Vitamin D deficiency, unspecified; Z79.899 Other long term (current) drug therapy
CPT/HCPCS: 71045; 80048; 82150; 83735; 85025; 85027; 94150; J0131; J0330; J0690; J1100; J1650; J2250; J2270; J2370; J2405; J2765; J3010; J3480; J7120; J8501